=== PATIENT | female | born 1970 | race American Indian/Alaskan Native ===

== ENCOUNTER 2016-12-24 16:52 | Emergency (ER) | payer SELFPAY ==
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
[2016-12-24] MEDS ORDERED: PERCOCET 5/325 PO ONE (20:11)
[2016-12-24] MEDS ORDERED: ZOFRAN ODT PO ONE (20:11)
[2016-12-24] MEDS ORDERED: VALIUM PO ONE (20:11)
[2016-12-24 20:51] VITALS: BP 120/62
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
== END 2016-12-24 22:48 | disposition home or self-care (01) ==
LOC: ED 16:52
DX: S16.1XXA Strain of muscle, fascia and tendon at neck level, initial encounter (principal); M54.6 Pain in thoracic spine; M25.511 Pain in right shoulder; M19.90 Unspecified osteoarthritis, unspecified site; V43.62XA Car passenger injured in collision with other type car in traffic accident, initial encounter; Y93.89 Activity, other specified; Y99.8 Other external cause status; Y92.89 Other specified places as the place of occurrence of the external cause
CPT/HCPCS: 72040; 72072; 72100; 99284; Q0162